=== PATIENT | female | born 1970 | race Hispanic/Latino ===

== ENCOUNTER 2017-11-27 06:18 | Day surgery (SDC) | payer OTHER ==
[2017-11-27 06:31] VITALS: BMI 30.7
[2017-11-27] MEDS ORDERED: ceFAZolin IV 1 gm in Dextrose 0 GM/0 ML BAG IVPB ONE (07:22)
[2017-11-27 07:39] LABS: HEMOGLOBIN 12.1 g/dL (12.0-16.0); MEAN CELL VOLUME 93.9 fl (81.0-99.0); MEAN CORPUSCULAR HEMOGLOBIN 31.5 pg (27.0-31.0); MEAN CORPUSCULAR HGB CONC 33.5 g/dL (33.0-37.0); RBC 3.83 Mil/uL (3.80-5.20); WHITE BLOOD COUNT 6.3 K/uL (4.8-10.8)
[2017-11-27] MEDS ORDERED: Propofol 10 mg/ml Inj (20 ML) ONE (08:00)
[2017-11-27] MEDS ORDERED: ePHEDrine 50 mg/ml Inj ONE (08:00)
[2017-11-27] MEDS ORDERED: Rocuronium 10 mg/ml (5 ml) ONE (08:00)
[2017-11-27] MEDS ORDERED: Succinylcholine 200 mg/10 ml Inj IV ONE (08:00)
[2017-11-27] MEDS ORDERED: Midazolam 2 MG/2 ML VIAL ONE (08:00)
[2017-11-27] MEDS ORDERED: Phenylephrine 10 mg/ml Inj ONE (08:41)
[2017-11-27] MEDS ORDERED: Neostigmine Methylsulfate 3mg/3ml Syringe IV ONE (08:46)
[2017-11-27] MEDS ORDERED: Neostigmine Methylsulfate 2 MG/2 ML ML IV ONE (08:47)
[2017-11-27] MEDS ORDERED: Dexamethasone 4 mg/1 ml ONE (08:48)
[2017-11-27] MEDS ORDERED: Lactated Ringer's 1,000 ML IV ONE ×2 (08:55→09:21)
[2017-11-27] MEDS: Bupivacaine 0.5% Inj(30mL) ONE ×2 (09:20→09:55)
[2017-11-27] MEDS ORDERED: Oxycodone/Acetaminophen 5/325 mg Tab PO PRN (10:07)
[2017-11-27] MEDS ORDERED: HYDROmorphone 0.5 mg/0.5 ml ISec IVP PRN (10:09)
[2017-11-27 13:01] VITALS: RESP 18
[2017-11-27 14:47] VITALS: TEMP 98.4
[2017-11-27 16:20] VITALS: BP 120/68; PULSE 90; O2SAT 98
--- NOTE | 2018-01-06 18:51 | OP ---
PROCEDURE DATE: 11/27/2017 PREOPERATIVE DIAGNOSES: 1. Pelvic pain. 2. Dysmenorrhea. 3. Dyspareunia. 4. Rule out endometriosis. POSTOPERATIVE DIAGNOSES: 1. Pelvic pain. 2. Dysmenorrhea. 3. Dyspareunia. 4. Rule out endometriosis. PROCEDURE PERFORMED: Cystoscopy with bilateral ureteral catheterization, hysteroscopy, robotic laparoscopy, ablation of endometriosis and left ureterolysis. SURGEON: James Kelly MD DOPING SUPERVISOR: Oswaldo Simms MD ANESTHESIA: General endotracheal. COMPLICATIONS: None. INDICATION FOR PROCEDURE: The patient presented with persistent dysmenorrhea and dyspareunia. A clinical exam revealed point tenderness. The patient was refractory to medical treatment and surgery was recommended. The patient was counseled with regards to risks and benefits of the procedure and the likelihood that the procedure may help identify or solve her problem. She reaffirmed a desire to move forward with the surgery and was taken to the OR. DESCRIPTION OF PROCEDURE: After adequate anesthesia was obtained, the patient was placed in a dorsal lithotomy position. She was prepped and draped. The surgeon gowned and gloved. At this point, all the areas were padded extensively, which were prone to compression, also extreme attention throughout the surgery was placed in not hyperextending or hyperflexing the patient's hips. At this point, the time-out was taken according to hospital policy and the procedure was commenced. Attention was in the vaginal area where a cystoscope was inserted into the bladder, the bladder appeared to be without any lesion, tumors or any abnormality. The both ureters appeared to be in normal anatomical position. The left ureter was then catheterized utilizing a 5-Maori open-ended catheter all the way to the distal catheter and 5 mL of IC-Green were injected. Attention in the contralateral ureter where again the ureter was cannulized utilizing a 5-Maori open-ended catheter all the way to the distal catheter injecting 5 mL of IC-Green. The stents were then removed and cystoscope was removed and Hillman was placed into the bladder. Attention was then in the vaginal area where speculum was placed into the vagina. The anterior lip of the cervix was grasped. The cervix was gently dilated and a hysteroscope was inserted into the uterine cavity. The cavity was then visualized, appeared to be free of lesions or tumors. At this point, attention was on the abdomen where after re-gowning and re-gloving, an open laparoscopy was performed utilizing standard technique and the peritoneum was entered in a blunt fashion and the cannula was placed. Under direct visualization, additional ports where placed in left upper quadrant and right upper quadrant. The da Lefty robot was docked. The upper abdomen was visualized, appear to be normal. The pelvis had significant inflammatory changes suggestive of endometriosis. An area of endometriosis with inflammatory changes were identified in the left pelvic side wall. The uterus was identified and lateralized utilizing florescent technology, which facilitated the procedure. The florescence was used to identify and lateralize the ureter. Peritoneum was then excised and sent to the pathology. Additional microscopic areas of endometriosis and inflammatory changes were then ablated throughout the pelvis including the cul-de-sac with an extensive ablation over the posterior aspect of the uterus, right pelvic side wall, left pelvis side wall and cul-de-sac. At this point, it was checked for hemostasis and appeared to be excellent. The da Lefty robot was detached. The abdomen was desufflated. The incisions were closed in layers with 0-PDS for the fascia and 4-0 Monocryl for the skin. At the end of the procedure all tapes and instruments count were correct. The patient tolerated the procedure well, was taken to recovery room in excellent condition. James Kelly MD [facility]
== END 2017-11-27 16:20 | disposition home or self-care (01) ==
LOC: H.OPSURG 06:18
PROVIDERS: ATTEND Obstetrics & Gynecology Reproductive Endocrinology
DX: N80.0 Endometriosis of uterus (principal); E03.9 Hypothyroidism, unspecified; F32.9 Major depressive disorder, single episode, unspecified; N94.6 Dysmenorrhea, unspecified
CPT/HCPCS: 36415; 52332; 58563; 58662; 85027; 86850; 86900; 88305; C1729; J0330; J1100; J2001; J2250; J2370; J2405; J2704; J2710; J3010; J7040; J7120